=== PATIENT | female | born 2005 | race Caucasian/White ===

== ENCOUNTER 2023-07-30 16:21 | Emergency (ER) | payer OTHER ==
[~2023-07-30] VITALS: Ht 172.7 cm; Wt 84.9 kg
[2023-07-30 16:41] VITALS: BP 117/64; PULSE 78; RESP 20; TEMP 98.1; O2SAT 100
== END 2023-07-30 18:56 | disposition left against medical advice (07) ==
LOC: MED 16:21
DX: R10.2 Pelvic and perineal pain (principal); Z53.21 Procedure and treatment not carried out due to patient leaving prior to being seen by health care provider
CPT/HCPCS: 99281